=== PATIENT | male | born 1995 | race Caucasian/White ===

== ENCOUNTER 2022-05-01 11:23 | Emergency (ER) | payer OTHER, SELFPAY ==
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
[2022-05-01 12:12] VITALS: BP 141/102; PULSE 74; RESP 16; TEMP 36.6; O2SAT 99; BMI 28.8
[2022-05-01 12:18] VITALS: BP 134/84
== END 2022-05-01 15:06 | disposition home or self-care (01) ==
PROVIDERS: Emergency Provider Emergency Medicine; PCP Internal Medicine
DX: S40.011A Contusion of right shoulder, initial encounter (principal); V43.52XA Car driver injured in collision with other type car in traffic accident, initial encounter; Y93.89 Activity, other specified; Y92.411 Interstate highway as the place of occurrence of the external cause; Y99.9 Unspecified external cause status
CPT/HCPCS: 73030; 99283; 99284

== ENCOUNTER → 2022-06-13 14:41 | Outpatient (BNVA) | payer OTHER, SELFPAY | PROVIDERS: PCP Internal Medicine; Visit Provider Urology | DX: Z01.818 Encounter for other preprocedural examination (principal); F41.8 Other specified anxiety disorders | CPT/HCPCS: 99202 ==

== ENCOUNTER → 2022-07-10 14:26 | Outpatient (BNVA) | payer OTHER, SELFPAY | PROVIDERS: PCP Internal Medicine; Visit Provider Urology | DX: Z30.2 Encounter for sterilization (principal); F41.8 Other specified anxiety disorders | CPT/HCPCS: 55250 ==

== ENCOUNTER 2022-10-15 08:49 | Outpatient (AMB) | payer OTHER, SELFPAY ==
--- NOTE | 2022-10-15 08:54 | MHC.OFFVIS ---
Intake Intake Visit Reasons: 3m/semen analysis Intake Note: Pt presents to the office today for a 3 month semen analysis. Allergies No Known Allergies Allergy (Verified 10/15/22 08:54) HPI HPI Comments History of Present Illness Details Rolando is a very pleasant male. He is a patient of Dr. Felton. He is seen for the following urologic condition - anxiety about health - Vasectomy evaluation No sperm seen per high-powered field Minimal issues following procedure Vasectomy followup The patient presents for vasectomy followup. He is currently He has fathered - 3 child, with a single partner. The youngest child is - 12 months. 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 COUNT INCLUDES THE [facility] Social History Housing: Condominium Patient Tobacco Use Status: Never used Tobacco e-Cigarette/Vaping Use: Never Used service: Yes ([employer]) Current occupational status: employed Cognitive needs: No Hearing needs: No Vision needs: No Review of Systems Const Denies chills and Denies fever(s) Card Reports no additional complaints and Denies syncope Resp Denies cough GI Denies abdominal pain and Denies heartburn Reports as per HPI and Denies change in libido Neuro Denies syncope Psych Denies change in libido Endo Denies change in libido Physical Exam Const General: cooperative, healthy appearing, comfortable and no acute distress Orientation/consciousness: patient oriented x3 HEENT Face and sinus: Yes normal facial exam Mouth: moist mucous membranes Neck Neck: Yes normal visual inspection, Yes full ROM and Yes trachea midline Chest Chest palpation & inspection: normal inspection of the chest Resp Effort & Inspection: normal respiratory effort, able to speak in complete sentences and no respiratory distress GI Inspection: Yes normal to inspection Back/Spine/Pelvis Cervical Spine: normal cervical lordosis Thoracic/Lumbar Spine: thoracic and lumbar spine normal to inspection Skin General skin exam: no rashes or lesions noted Neuro General: patient oriented x3, gait normal, tone normal and moves all extremities Extrem General: Yes normal to inspection and Yes capillary refill normal Assessment & Plan Assessment & Plan (1) Anxiety about health: Code(s): F41.8 - Other specified anxiety disorders Plan P.r.n. follow-up Patient Instructions: Imaging studies, laboratory and physical exam results were discussed and reviewed in detail. No major barriers to patient understanding were identified. An opportunity to ask questions regarding the treatment plan was provided. All questions were answered. The patient expressed understanding and agreement with the above treatment plan. The patient is aware they should contact our office by phone for worsening of their current condition or the appearance of new urologic symptoms. Compliance is encouraged with any medications and followup testing that is ordered. It is a privilege to participate in the urologic care of your patient. If you have any questions or concerns regarding treatment for the above conditions, or other urologic issues, please do not hesitate to contact me. The office telephone contact is [phone]. This note is constructed using voice recognition software. While every effort has been made to ensure accuracy merchandise planner errors may have been included. Yours sincerely, Dr Hamilton Copeland MD, [facility] Providers of Expert, Compassionate Care for the Genitourinary System Coding Level of Care Code Est Pt Level 3 (31737) Diagnoses Anxiety about health F41.8
== END 2022-10-15 09:13 | disposition home or self-care (01) ==
PROVIDERS: Visit Provider Urology
DX: F41.8 Other specified anxiety disorders (principal)
CPT/HCPCS: 99213

== ENCOUNTER → 2022-10-15 08:49 | Outpatient (BNVA) | payer OTHER, SELFPAY | PROVIDERS: Visit Provider Urology | DX: Z30.8 Encounter for other contraceptive management (principal); F41.8 Other specified anxiety disorders; Z98.52 Vasectomy status | CPT/HCPCS: 99212 ==

== ENCOUNTER 2023-01-07 14:17 | Outpatient (AMB) | payer OTHER, SELFPAY ==
[2023-01-07 14:20] VITALS: BP 112/58; PULSE 75; O2SAT 98; BMI 29.9
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
== END 2023-01-07 15:44 | disposition home or self-care (01) ==
PROVIDERS: Visit Provider Internal Medicine
DX: Z00.00 Encounter for general adult medical examination without abnormal findings (principal); E66.3 Overweight; Z68.29 Body mass index [BMI] 29.0-29.9, adult; M23.92 Unspecified internal derangement of left knee
CPT/HCPCS: 99395

== ENCOUNTER 2023-04-08 08:56 | Outpatient (REF) | payer OTHER, SELFPAY ==
[2023-04-08 12:12] LABS: HIV AB/AG Nonreactive (Nonreactive); HIV Num 1 0.04 S/CO (0.00-0.99)
== END 2023-04-08 08:57 | disposition home or self-care (01) ==
LOC: HO.HMGCLDS 08:56
PROVIDERS: PCP Internal Medicine; Visit Provider Internal Medicine
DX: Z11.3 Encounter for screening for infections with a predominantly sexual mode of transmission (principal)
CPT/HCPCS: 36415; 87389

== ENCOUNTER 2023-05-07 11:45 | Outpatient (AMB) | payer OTHER, SELFPAY ==
--- NOTE | 2023-05-07 12:59 | AM.OFFWIN_ITS ---
Intake Vital Signs 05/07/23 13:06 Weight 219 lb BP 124/80 Blood Pressure Location Rt brachial Position Sitting Pulse 84 Pulse Source Pulse Oximeter Temp 98.2 F Temp Source Oral Pulse Oximetry (%) 98 Oxygen Delivery Method Room Air Intake Visit Reasons: EP Cough [phone] Intake Note: Patient here for cough that is on and off that has been going on for a while. Patient Tobacco Use Status: Never used Tobacco Allergies No Known Allergies Allergy (Verified 05/07/23 13:00) Do you need a note to return to daycare/school/sports/work: No HPI HPI Comments History of Present Illness Details 27 y/o male patient who presents to walk in clinic with c/o Chronic cough. Reports that the cough started 3-4 weeks ago. Denies any other Symptoms. He has not taken any OTC remedies. Son sick with Strept. [facility] Social History Housing: Condominium Patient Tobacco Use Status: Never used Tobacco e-Cigarette/Vaping Use: Never Used service: Yes ([employer]) Current occupational status: employed Cognitive needs: No Hearing needs: No Vision needs: No Review of Systems Const All systems reviewed & are unremarkable except as noted in HPI and below Physical Exam Vital Signs: Last Vital Signs Temp 98.2 F 05/07/23 13:06 Pulse 84 05/07/23 13:06 BP 124/80 05/07/23 13:06 Pulse Ox 98 05/07/23 13:06 Oxygen Delivery Method Room Air 05/07/23 13:06 Const General: comfortable and no acute distress HEENT Head: Yes normocephalic Ears: external ears normal and TM's normal bilaterally General nose exam: Normal nasal mucous membranes and turbinates present Face and sinus: Yes sinuses nontender Mouth: moist mucous membranes Resp Effort & Inspection: normal respiratory effort, able to speak in complete sentences and Actively coughing Auscultation: clear to auscultation bilaterally, no crackles, no rales, no rhonchi and no wheezes Cardio Rate: regular rate Rhythm: regular rhythm Assessment & Plan Assessment & Plan (1) Cough in adult: Code(s): R05.9 - Cough, unspecified Plan: - OTC cough remedies - Take medications as directed. Medications: New azithromycin 500 mg PO DAILY 3 days 3 tabs 0RF R05.9 - Cough, unspecified [id number] 5-10-100 mg/5 mL (Adult Robitussin Peak Cold M-S) 10 mL PO Q4H PRN 237 mL 0RF cold symptoms R05.9 - Cough, unspecified benzonatate 100 mg PO TID 30 caps 0RF R05.9 - Cough, unspecified cetirizine (Zyrtec) 10 mg PO DAILY 30 tabs 0RF R05.9 - Cough, unspecified Coding Level of Care Code Est Pt Level 3 (82444) Diagnoses Cough in adult R05.9 Time Spent (min) 15
[2023-05-07 13:06] VITALS: BP 124/80; PULSE 84; TEMP 36.8; O2SAT 98
== END 2023-05-07 14:49 | disposition home or self-care (01) ==
PROVIDERS: PCP Internal Medicine; Visit Provider Nurse Practitioner Family
DX: R05.9 Cough, unspecified (principal)
CPT/HCPCS: 99213

== ENCOUNTER 2023-07-10 14:41 | Outpatient (AMB) | payer OTHER, SELFPAY ==
[2023-07-10 14:47] VITALS: BP 118/78; PULSE 75; O2SAT 98; BMI 27.8
--- NOTE | 2023-07-10 14:47 | A.OFFPC_ITS ---
Vital Signs 07/10/23 14:47 Height 6 ft 2 in Weight 216 lb 4 oz BMI 27.8 BP 118/78 Blood Pressure Location Lt brachial Position Sitting Pulse 75 Pulse Source Pulse Oximeter Pulse Oximetry (%) 98 Oxygen Delivery Method Room Air Intake Visit Reasons: Recent change in skin texture and visual redness/i Allergies No Known Allergies Allergy (Verified 07/10/23 14:49) Medication List - Last Reviewed 07/10/23 by Jennifer Saldivar MA Tobacco use date assessed: 07/10/23 Dental Screening Dental Screen Date: 07/10/23 Did you have a dental visit in the last 12 months?: Yes Did you have a dental problem in the last 6 months where you did not have access to dental care?: No Was dental information given to patient?: Patient has dentist HPI Recent change in skin texture and visual redness/i HPI Details Patient is 27-year-old gentleman came in today to be evaluated for redness flakiness over his nose During the interview patient told me that he has used strips on his nose to remove blackheads Today the redness is better and flakiness is also improving Patient was seen last January of last year and I ordered labs for him during physical exam which are still not done Reminded patient to do those As far as the red less and flakiness is concerned it is already getting better I would recommend to observe for another few days. And avoid using that product again [facility] Social History Housing: Condominium Patient Tobacco Use Status: Never used Tobacco e-Cigarette/Vaping Use: Never Used service: Yes ([employer]) Current occupational status: employed Cognitive needs: No Hearing needs: No Vision needs: No Questionnaire PHQ-9 Over the last 2 weeks, how often have you been bothered by any of the following problems? 1. Little interest or pleasure in doing things: several days 2. Feeling down, depressed, or hopeless: not at all 3. Trouble falling or staying asleep, or sleeping too much: not at all 4. Feeling tired or having little energy: several days 5. Poor appetite or overeating: not at all 6. Feeling bad about yourself - or that you are a failure or have let yourself or your family down: several days 7. Trouble concentrating on things, such as reading the newspaper or watching television: not at all 8. Moving or speaking so slowly that other people could have noticed. Or the opposite - being so fidgety or restless that you have been moving around a lot more than usual: not at all 9. Thoughts that you would be better off or of hurting yourself in some way: not at all Total score: 3 Depression Screening Interpretation: Negative Depression Screening Done: Yes 10600 - PHQ-9 Billing: Yes Source: Developed by Drs. Talib Tabares, Christine Arambula, Too Bhandari and colleagues, with an educational emilee from [employer]. Thrive Questionnaire Date Thrive assessed: 07/10/23 I am a: Patient What is your living situation today?: I have a steady place to live Within the past 12 months, did the food you bought not last and you didn't have the money to get more?: Never true Within the past 12 months, did you worry whether your food would run out before you got money to buy more?: Never true Do you have trouble paying for medicines?: No Do you have trouble getting transportation to medical appointments?: No Do you have trouble paying your heating and electricity bill?: No Do you have trouble taking care of your child, family member or friend?: No Do you have trouble with day-to-day activities such as bathing, preparing meals, shopping, managing finances, etc.?: No Are you currently unemployed and looking for a job?: No Are you interested in more education?: Yes Please select the resources that you would like help with: None Currently or been in a relationship where the following occur: no concerns reported THRIVE Score: 0 AUDIT C Alcohol Use Questionnaire (AUDIT-C) 1. How often do you have a drink containing alcohol?: Monthly or less 2. How many drinks containing alcohol do you have on a typical day when you are drinking?: 1 or 2 3. How often do you have six or more drinks on one occasion?: Never Total Score: 1 Score Reviewed/Action Taken: Yes JHONATAN-7 AMB Questionnaire JHONATAN-7 Date JHONATAN - 7 assessed: 07/10/23 Feeling nervous, anxious, or on edge: 0 = Not at all Not being able to stop or control worryin = Not at all Worrying too much about different things: 0 = Not at all Trouble relaxin = Not at all Being so restless that it is hard to sit still: 0 = Not at all Becoming easily annoyed or irritable: 0 = Not at all Feeling afraid as if something awful might happen: 0 = Not at all Total JHONATAN-7 score (0-4 normal; 5-9 mild; 10-14 moderate; 15-21 severe): 0 Source: Developed by Drs. Talib Tabares, Christine Arambula, Too Bhandari and colleagues, with an educational emilee from [employer]. JHONATAN-7 Assessment Billing JHONATAN-7 Assessment Tool: JHONATAN-7 Assessment 21648 Review of Systems Const All systems reviewed & are unremarkable except as noted in HPI and below Physical exam (Primary Care) Vital Signs: Last Vital Signs Pulse 75 07/10/23 14:47 BP 118/78 07/10/23 14:47 Pulse Ox 98 07/10/23 14:47 Oxygen Delivery Method Room Air 07/10/23 14:47 BMI result Body Mass Index 27.8 Tobacco/Smoking Status: Tobacco use Status Tobacco use date assessed 07/10/23 07/10/23 14:50 Patient Tobacco Use Status Never used Tobacco 07/10/23 14:50 e-Cigarette/Vaping Use Never Used 07/10/23 14:50 Depression Screening Interpretation: Negative Thrive Assessment: Date of Thrive Assessment Date Thrive assessed 01/07/23 07/10/23 14:50 Currently or been in a relationship where the following occur: no concerns reported Const General: no acute distress Orientation/consciousness: patient oriented x3 Eyes General: appearance normal, both eyes and all related structures Resp Effort & Inspection: normal respiratory effort and able to speak in complete sentences Auscultation: clear to auscultation bilaterally Neuro General: patient oriented x3 Psych Mental Status: mental status grossly normal Assessment and Plan Assessment & Plan (1) Rash: Code(s): R21 - Rash and other nonspecific skin eruption Plan Patient is 27-year-old gentleman came in today to be evaluated for redness fl akiness over his nose During the interview patient told me that he has used strips on his nose to remove blackheads Today the redness is better and flakiness is also improving Patient was seen last January of last year and I ordered labs for him during physical exam which are still not done Reminded patient to do those As far as the red less and flakiness is concerned it is already getting better I would recommend to observe for another few days. And avoid using that product again Medications: Discontinued azithromycin Discontinued Reason: Doctor's Order 500 mg PO DAILY 3 days 3 tabs 0RF R05.9 - Cough, unspecified [id number] 5-10-100 mg/5 mL (Adult Robitussin Peak Cold M-S) Discontinued Reason: Doctor's Order 10 mL PO Q4H PRN 237 mL 0RF cold symptoms R05.9 - Cough, unspecified benzonatate Discontinued Reason: Doctor's Order 100 mg PO TID 30 caps 0RF R05.9 - Cough, unspecified Coding Level of Care Code Est Pt Level 3 (23784) Diagnoses Rash R21 Additional Codes JHONATAN-7 Assessment Billing - JHONATAN-7 Assessment Tool: JHONATAN-7 Assessment 77735 ([id number])
== END 2023-07-10 16:17 | disposition home or self-care (01) ==
PROVIDERS: PCP Internal Medicine; Visit Provider Internal Medicine
DX: R21 Rash and other nonspecific skin eruption (principal)
CPT/HCPCS: 99213

== ENCOUNTER 2023-07-13 13:14 | Outpatient (REF) | payer OTHER, SELFPAY ==
[2023-07-13 16:28] LABS: MANUAL DIFF FLAG NO
[2023-07-13 16:32] LABS: Basophils Percent Auto 0.6 % (0-2); Eosinophils Absolute Auto 0.1 X10*3/uL (0.0-0.4); Eosinophils Percent Auto 1.3 % (0-4); Hematocrit 42.9 % (42.0-52.0); Imm Gran Abs Auto 0.03 X10*3/uL (0.00-0.03); Imm Gran Pct Auto 0.5 % (0.0-0.4); Lymphocytes Absolute Auto 1.2 X10*3/uL (1.2-4.9); Mean Corpuscular Hemoglobin 30.1 pg (27.0-33.0); Mean Corpuscular Volume 86.1 fL (80.0-98.0); Mean Platelet Volume 10.9 fL (9.4-12.4); Monocytes Absolute Auto 0.4 X10*3/uL (0.1-1.2); Neutrophils Absolute Auto 4.5 x10*3/uL (2.0-8.3); Neutrophils Percent Auto 71.6 % (45-73); Platelet Count 237 X10*3/uL (160-400); Red Blood Count 4.98 X10*6/uL (4.60-5.80); Red Cell Distribution Width 12.3 % (11.0-16.0); White Blood Count 6.3 X10*3/uL (4.8-10.8)
[2023-07-13 16:58] LABS: Alanine Aminotransferase 33 U/L (0-40); Albumin Level 4.6 g/dL (3.5-5.0); Alkaline Phosphatase 63 U/L (39-117); Anion Gap 17 (12-20); Aspartate Amino Transferase 21 U/L (5-37); Bilirubin Total 0.7 mg/dL (0.0-1.0); Blood Urea Nitrogen 15 mg/dL (9-16); Calcium 9.9 mg/dL (8.4-10.2); Carbon Dioxide 24 mmol/L (22-29); Chloride 104 mmol/L (96-108); Cholesterol 163 mg/dL (<200); Estimated Glomerular Filt Rate > 60; Glucose Fasting 75 mg/dL (60-99); HDL Cholesterol 39 mg/dL (>40); LDL Cholesterol Calculated 101 mg/dL (<100); Potassium 4.6 mmol/L (3.3-5.1); Sodium 140 mmol/L (135-145); Total Protein 7.8 g/dL (6.5-8.0); Triglycerides 119 mg/dL (<150)
== END 2023-07-13 13:15 | disposition home or self-care (01) ==
LOC: HO.HMGCLDS 13:14
PROVIDERS: PCP Internal Medicine; Visit Provider Internal Medicine
DX: Z00.01 Encounter for general adult medical examination with abnormal findings (principal); M23.92 Unspecified internal derangement of left knee; E66.3 Overweight
CPT/HCPCS: 36415; 80053; 80061; 85025